=== PATIENT | male | born 1965 | race Caucasian/White ===

== ENCOUNTER → 2017-06-21 | Outpatient (CLI) | payer BC ==
[~2017-06-21] MED LIST: RT-ALBUTEROL SULF 2.5 MG/3 ML PRE-MIX VIAL INH ONE
== END ==
LOC: RT 16:16
PROVIDERS: ATTEND Nurse Practitioner Family
DX: J45.909 Unspecified asthma, uncomplicated (principal); R06.00 Dyspnea, unspecified; K21.9 Gastro-esophageal reflux disease without esophagitis
CPT/HCPCS: 94060; 94726; 94729

== ENCOUNTER → 2017-10-18 | Outpatient (CLI) | payer BC ==
--- NOTE | 2017-10-18 13:08 | Diagnostic Imaging Report ---
INDICATION: Chest pain. TECHNIQUE: A frontal chest was performed as well as right rib detailed views. FINDINGS: There is no pneumothorax, lung contusion, infiltrate, or pleural fluid. The cardiomediastinal and hilar contours are normal. There is no free air beneath the diaphragm. No bony destructive process or rib fracture deformity. No abnormal periosteal reaction. IMPRESSION: No acute finding on this frontal chest and right rib series. Dictated by: Dictated on workstation # [id number]
== END ==
LOC: RAD 11:46
PROVIDERS: ATTEND Nurse Practitioner Family
DX: R07.81 Pleurodynia (principal)
CPT/HCPCS: 71101